=== PATIENT | female | born 1995 | race Caucasian/White ===

== ENCOUNTER 2020-03-20 08:09 | Emergency (ER) | payer OTHER ==
[~2020-03-20] VITALS: Ht 180.3 cm; Wt 86.2 kg
[2020-03-20] MEDS ORDERED: KEPPRA500 MG (08:34)
[2020-03-20] MEDS ORDERED: DICLOFENAC SODI75 MG PO (11:53)
== END 2020-03-20 12:25 | disposition home or self-care (01) ==
LOC: ER 08:09
DX: S43.014A Anterior dislocation of right humerus, initial encounter (principal); X50.0XXA Overexertion from strenuous movement or load, initial encounter; Y93.89 Activity, other specified; Y92.092 Bedroom in other non-institutional residence as the place of occurrence of the external cause; Y99.8 Other external cause status

== ENCOUNTER 2020-05-09 22:45 | Emergency (ER) | payer OTHER ==
[~2020-05-09] VITALS: Ht 175.3 cm; Wt 95.3 kg
[~2020-05-09 22:45] MED LIST: DICLOFENAC SODI75 MG PO; KEPPRA500 MG
== END 2020-05-10 09:12 | disposition home or self-care (01) ==
LOC: ER 22:45 → EDSEX 22:45 → ER 23:10
DX: S43.014A Anterior dislocation of right humerus, initial encounter (principal); X50.0XXA Overexertion from strenuous movement or load, initial encounter; Y93.89 Activity, other specified; Y92.69 Other specified industrial and construction area as the place of occurrence of the external cause; Y99.8 Other external cause status; Z03.818 Encounter for observation for suspected exposure to other biological agents ruled out

== ENCOUNTER 2020-06-04 09:56 | Emergency (ER) | payer OTHER ==
[~2020-06-04] VITALS: Ht 180.3 cm; Wt 86.2 kg
== END 2020-06-04 14:29 | disposition home or self-care (01) ==
LOC: ER 09:56
DX: K29.60 Other gastritis without bleeding (principal); Z03.818 Encounter for observation for suspected exposure to other biological agents ruled out

== ENCOUNTER 2020-06-28 09:43 | Inpatient (IN) | payer OTHER ==
[~2020-06-28] VITALS: Ht 180.3 cm; Wt 86.2 kg
[2020-06-28] MEDS ORDERED: OXYC1TAB9 PO (20:28)
[2020-06-28] MEDS ORDERED: DUI500 PO (20:28)
== END 2020-06-29 22:00 | disposition home or self-care (01) | DRG 563 ==
LOC: ER 09:43 → SEC-K 17:46 → O/R 17:46
PROVIDERS: ADMIT Orthopaedic Surgery Sports Medicine; ATTEND Orthopaedic Surgery Sports Medicine
PROC: 0RSJXZZ Reposition Right Shoulder Joint, External Approach (ICD-10-PCS; principal; 2020-06-28 19:00)
DX: M24.411 Recurrent dislocation, right shoulder (principal); G40.802 Other epilepsy, not intractable, without status epilepticus; Z20.822 Contact with and (suspected) exposure to COVID-19

== ENCOUNTER 2020-07-17 16:47 | Emergency (ER) | payer OTHER ==
[~2020-07-17] VITALS: Ht 180.3 cm; Wt 86.2 kg
[~2020-07-17 16:47] MED LIST changes: +DUI500 PO; +OXYC1TAB9 PO
[2020-07-18] MEDS ORDERED: PEPCID40 MG PO (03:01)
[2020-07-18] MEDS ORDERED: LEVSIN/SL0.125 MG SL ×2 (03:01→03:02)
[2020-07-18] MEDS ORDERED: ZOFRAN8 MG PO (03:01)
== END 2020-07-18 03:09 ==
LOC: ER 16:47
DX: K52.89 Other specified noninfective gastroenteritis and colitis (principal); Z20.822 Contact with and (suspected) exposure to COVID-19

== ENCOUNTER 2020-09-15 10:59 | Emergency (ER) | payer OTHER ==
[~2020-09-15] VITALS: Ht 180.3 cm; Wt 84.4 kg
[~2020-09-15 10:59] MED LIST changes: +LEVSIN/SL0.125 MG SL; +PEPCID40 MG PO; +ZOFRAN8 MG PO
== END 2020-09-15 14:01 | disposition home or self-care (01) ==
LOC: ER 10:59
DX: S43.084A Other dislocation of right shoulder joint, initial encounter (principal); X50.9XXA Other and unspecified overexertion or strenuous movements or postures, initial encounter; Y93.89 Activity, other specified; Y92.89 Other specified places as the place of occurrence of the external cause; Y99.8 Other external cause status

== ENCOUNTER 2020-11-12 21:04 | Day surgery (SDC) | payer OTHER ==
[~2020-11-12] VITALS: Ht 180.3 cm; Wt 81.6 kg
== END 2020-11-13 05:30 | disposition home or self-care (01) ==
LOC: ER 21:04 → CIR.AMB 11-13 02:26
PROVIDERS: ATTEND Orthopaedic Surgery
DX: S43.011A Anterior subluxation of right humerus, initial encounter (principal); Z20.822 Contact with and (suspected) exposure to COVID-19

== ENCOUNTER 2020-11-28 11:32 | Day surgery (SDC) | payer OTHER ==
[~2020-11-28] VITALS: Ht 180.3 cm; Wt 81.6 kg
[2020-11-28] MEDS ORDERED: ULTRACET PO (20:34)
== END 2020-11-28 20:34 | disposition home or self-care (01) ==
LOC: CIR.AMB 11:32 → ER 11:32 → O/R 18:18 → SEC-K 18:18 → O/R 19:25 → EDSTATUS 20:00 → CIR.AMB 20:34 → O/R 22:10
PROVIDERS: ATTEND Orthopaedic Surgery Sports Medicine
DX: S43.084A Other dislocation of right shoulder joint, initial encounter (principal); Z20.822 Contact with and (suspected) exposure to COVID-19

== ENCOUNTER 2021-04-02 04:46 | Day surgery (SDC) | payer OTHER ==
[~2021-04-02] VITALS: Ht 180.3 cm; Wt 81.6 kg
[~2021-04-02 04:46] MED LIST changes: +ULTRACET PO
[2021-04-02] MEDS ORDERED: ULTRACET PO (14:16)
== END 2021-04-02 15:25 | disposition home or self-care (01) ==
LOC: ER 04:46 → CIR.AMB 12:14
PROVIDERS: ATTEND Orthopaedic Surgery Sports Medicine
DX: S43.084A Other dislocation of right shoulder joint, initial encounter (principal); Z20.822 Contact with and (suspected) exposure to COVID-19